=== PATIENT | male | born 1960 | race Caucasian/White ===

== ENCOUNTER 2018-07-06 06:48 | Day surgery (SDC) | payer BC ==
[2018-06-30 14:28] VITALS: BMI 35.9
[~2018-07-06 06:48] MED LIST: LACTATED RINGERS 1,000 ML IV SCH; LIDOCAINE 1% 20 ML VIAL (10MG/ML) FOR IV START INTRADERMA PRN
[2018-07-06 07:09] VITALS: RESP 16; TEMP 98.1
[2018-07-06 07:23] LABS: Glucose,Whole Blood 192 mg/dL (75-99)
[2018-07-06] MEDS ORDERED: PROPOFOL 10 MG/ML 20 ML VIAL IV ONE (07:47)
[2018-07-06] MEDS ORDERED: GLUCAGON 1 MG/ML VIAL ONE (07:47)
--- NOTE | 2018-07-06 07:52 | P.GSHP ---
History of Present Illness H&P Date: 07/06/18 Chief Complaint: History of colon polyps This is a 57-year-old male who presents today for colonoscopy. Patient history of colon polyps. Past Medical History Past Medical History: Diabetes Mellitus Additional Past Medical History / Comment(s): hx colon polyps History of Any Multi-Drug Resistant Organisms: None Reported Past Surgical History: No Surgical Hx Reported Additional Past Surgical History / Comment(s): colonoscopy Past Anesthesia/Blood Transfusion Reactions: No Reported Reaction Past Psychological History: No Psychological Hx Reported Smoking Status: Former smoker Past Alcohol Use History: Occasional Additional Past Alcohol Use History / Comment(s): quit smoking 20 yrs ago, smoked 1 pack per month Past Drug Use History: None Reported - Past Family History Father Family Medical History: Cancer, Deep Vein Thrombosis (DVT) Mother Family Medical History: Cancer Medications and Allergies Home Medications Medication Instructions Recorded Confirmed Type metFORMIN HCL [Glucophage] 500 mg PO BID 03/29/16 07/06/18 History Allergies Allergy/AdvReac Type Severity Reaction Status Date / Time No Known Allergies Allergy Verified 07/06/18 07:05 Surgical - Exam Vital Signs Temp Pulse Resp BP Pulse Ox 98.1 F 58 L 16 152/85 97 07/06/18 07:03 07/06/18 07:03 07/06/18 07:03 07/06/18 07:03 07/06/18 07:03 - General well developed, no distress - Eyes PERRL - ENT normal pinna - Neck no masses - Respiratory normal expansion - Cardiovascular Rhythm: regular - Abdomen Abdomen: soft, non tender Results - Labs Abnormal Lab Results - Last 24 Hours (Table) 07/06/18 Range/Units 07:11 POC Glucose (mg/dL) 192 H (75-99) mg/dL Assessment and Plan Assessment: History of colon polyps. We'll perform colonoscopy.
--- NOTE | 2018-07-06 08:16 | P.OP ---
Date of Procedure: 07/06/18 Preoperative Diagnosis: History of colon polyps Postoperative Diagnosis: Rectal polyp Right colon polyp Procedure(s) Performed: Colonoscopy Anesthesia: MAC Surgeon: Best Campbell Pathology: other (Colon polyps) Condition: stable Disposition: PACU Description of Procedure: Patient's placed on the endoscopy table in the lateral position. He received IV sedation. Digital rectal exam was performed which revealed no abnormalities. The prostate was symmetric without nodules. The flexible colonoscope was then placed patient anus and passed throughout the entire colon. Ileocecal valve was visualized. The cecum, appeared normal. In the ascending colon there was another polyp seen this is removed the cold forcep. The remainder of the transverse colon and descending colon appeared normal. Sigmoid colon had a few scattered diverticula. Scope was then brought back the rectum and another polyp seen this removed with the snare. Scope was withdrawn for patient.
[2018-07-06 08:32] LABS: Glucose,Whole Blood 232 mg/dL (75-99)
[2018-07-06 08:52] VITALS: BP 132/88; PULSE 67
== END 2018-07-06 09:14 | disposition home or self-care (01) ==
LOC: ORWHC2ENDO 06:48
PROVIDERS: ATTEND Surgery
DX: Z12.11 Encounter for screening for malignant neoplasm of colon (principal); D12.8 Benign neoplasm of rectum; K63.5 Polyp of colon; K57.30 Diverticulosis of large intestine without perforation or abscess without bleeding; Z86.010 Personal history of colon polyps; E11.9 Type 2 diabetes mellitus without complications; Z87.891 Personal history of nicotine dependence; Z79.84 Long term (current) use of oral hypoglycemic drugs
CPT/HCPCS: 88305; 45380; 45385; J1610; J2704

== ENCOUNTER 2021-03-29 23:39 | Emergency (ER) | payer BC, OTHER ==
[2021-03-30] MEDS ORDERED: BAMLANIVIMAB (EUA) 700 MG, ETESEVIMAB (EUA) 1,400 MG in SODIUM CHLORIDE 0.9% 50 ML IVPB ONE (00:15)
[2021-03-30] MEDS ORDERED: SODIUM CHLORIDE 0.9% 50 ML IVPB ONE (00:15)
--- NOTE | 2021-03-30 00:47 | XR ---
EXAMINATION TYPE: XR chest 2V DATE OF EXAM: 03/30/2021 COMPARISON: NONE HISTORY: Chest pain TECHNIQUE: 2 views FINDINGS: There is some patchy predominantly interstitial infiltrates in both lungs. Heart and medias tinum are normal. There are no hilar masses. There is no pleural effusion. Bony thorax is intact. IMPRESSION: Patchy bilateral mild interstitial pneumonia. Normal heart.
[2021-03-30 02:08] VITALS: BP 154/87; PULSE 78; RESP 18; TEMP 98.5
--- NOTE | 2021-04-30 16:36 | ED ---
SOB HPI - General Chief Complaint: Shortness of Breath Stated Complaint: covid+, SOB Time Seen by Provider: 03/29/21 23:55 Source: patient, RN notes reviewed Mode of arrival: ambulatory Limitations: no limitations - History of Present Illness Initial Comments: 60-year-old male complaining of shortness of breath since middle of March. He came to the emergency room due to a low oxygen saturation at home on a home pulse ox. He noted that he was not having any symptoms or issues. He notes he came in due to the low readings on his at home pulse ox. He denied chest pain shortness of breath headache nausea vomiting diarrhea constipation fever fatigue chills. - Related Data Home Medications Medication Instructions Recorded Confirmed metFORMIN HCL [Glucophage] 500 mg PO BID 03/29/16 07/06/18 Allergies Allergy/AdvReac Type Severity Reaction Status Date / Time No Known Allergies Allergy Verified 03/29/21 23:43 Review of Systems ROS Statement: Those systems with pertinent positive or pertinent negative responses have been documented in the HPI. ROS Other: All systems not noted in ROS Statement are negative. Past Medical History Past Medical History: Diabetes Mellitus Additional Past Medical History / Comment(s): hx colon polyps History of Any Multi-Drug Resistant Organisms: None Reported Past Surgical History: No Surgical Hx Reported Additional Past Surgical History / Comment(s): colonoscopy Past Anesthesia/Blood Transfusion Reactions: No Reported Reaction Past Psychological History: No Psychological Hx Reported Smoking Status: Never smoker Past Alcohol Use History: Occasional Past Drug Use History: None Reported - Past Family History Father Family Medical History: Cancer, Deep Vein Thrombosis (DVT) Mother Family Medical History: Cancer General Exam Limitations: no limitations General appearance: alert, in no apparent distress, obese Head exam: Present: atraumatic, normocephalic, normal inspection Eye exam: Present: normal appearance, PERRL, EOMI. Absent: scleral icterus, conjunctival injection, periorbital swelling ENT exam: Present: normal exam, mucous membranes moist Neck exam: Present: normal inspection. Absent: tenderness, meningismus, lymphadenopathy Respiratory exam: Present: normal lung sounds bilaterally. Absent: respiratory distress, wheezes, rales, rhonchi, stridor Cardiovascular Exam: Present: regular rate, normal rhythm, normal heart sounds. Absent: systolic murmur, diastolic murmur, rubs, gallop, clicks GI/Abdominal exam: Present: soft, normal bowel sounds. Absent: distended, tenderness, guarding, rebound, rigid Extremities exam: Present: normal inspection, full ROM, normal capillary refill. Absent: tenderness, pedal edema, joint swelling, calf tenderness Neurological exam: Present: alert, oriented X3 Psychiatric exam: Present: normal affect, normal mood Skin exam: Present: warm, dry, intact, normal color. Absent: rash Course Vital Signs 03/29/21 03/30/21 03/30/21 23:43 00:32 01:48 Temperature 97.8 F 98.5 F Pulse Rate 76 78 Respiratory 16 18 18 Rate Blood Pressure 148/85 154/87 O2 Sat by Pulse 97 97 96 Oximetry Medical Decision Making - Medical Decision Making 60-year-old male that presents emergency department complaining of shortness of breath and low oxygen at home. Vital signs are stable within normal limits. Patient does meet criteria for monoclonal antibodies. Patient is reluctant discharge home after. Case discussed with Dr. Stein. - Radiology Data Radiology results: report reviewed, image reviewed Chest x-ray: Patchy bilateral mild interstitial pneumonia. Normal heart. Disposition Clinical Impression: COVID Disposition: HOME SELF-CARE Condition: Stable Additional Instructions: Please return to the Emergency Department if symptoms worsen or any other concerns. Is patient prescribed a controlled substance at d/c from ED?: No Referrals: Raji Lima DO [Primary Care Provider] - 1-2 days Time of Disposition: 01:25
== END 2021-03-30 01:50 | disposition home or self-care (01) ==
LOC: EC 23:39
DX: U07.1 COVID-19 (principal); E11.9 Type 2 diabetes mellitus without complications
CPT/HCPCS: 71046; 99284; J3490

== ENCOUNTER 2022-05-27 06:52 | Day surgery (SDC) | payer OTHER ==
[2022-05-24 15:30] VITALS: BMI 33.7
[~2022-05-27 06:52] MED LIST changes: +LIDOCAINE 1% (10MG/ML) FOR IV START INTRADERMA PRN; -LIDOCAINE 1% 20 ML VIAL (10MG/ML) FOR IV START INTRADERMA PRN
[2022-05-27 07:11] VITALS: TEMP 96.5
[2022-05-27 07:27] LABS: Glucose,Whole Blood 159 mg/dL (70-110)
[2022-05-27] MEDS ORDERED: IV FLUID CONTINUATION 1,000 ML IV ONE ×2 (07:39)
[2022-05-27] MEDS ORDERED: PROPOFOL 10 MG/ML 20 ML VIAL IV ONE (07:39)
--- NOTE | 2022-05-27 07:50 | P.GSHP ---
History of Present Illness H&P Date: 05/27/22 Chief Complaint: History of colon polyps This a 7-year-old male with previous history of old polyps. Patient resents today for colonoscopy. Past Medical History Past Medical History: Diabetes Mellitus Additional Past Medical History / Comment(s): hx colon polyps,was treated with monoclonal antibodies 2020 for SOB History of Any Multi-Drug Resistant Organisms: None Reported Past Surgical History: Appendectomy Additional Past Surgical History / Comment(s): colonoscopy Past Anesthesia/Blood Transfusion Reactions: No Reported Reaction Additional Past Anesthesia/Blood Transfusion Reaction / Comment(s): no hx blood transfusion Smoking Status: Former smoker - Past Family History Father Family Medical History: Cancer Additional Family Medical History / Comment(s): lung Mother Family Medical History: Cancer Additional Family Medical History / Comment(s): sleep apnea Medications and Allergies Home Medications Medication Instructions Recorded Confirmed Type Empagliflozin [Jardiance] 10 mg PO HS 05/24/22 05/24/22 History Rosuvastatin Calcium 5 mg PO HS 05/24/22 05/24/22 History metFORMIN HCL ER [Glucophage XR] 500 mg PO HS 05/24/22 05/24/22 History Allergies Allergy/AdvReac Type Severity Reaction Status Date / Time No Known Allergies Allergy Verified 05/27/22 07:08 Surgical - Exam Vital Signs Temp Pulse Resp BP Pulse Ox 96.5 F L 74 16 149/86 97 05/27/22 07:10 05/27/22 07:10 05/27/22 07:10 05/27/22 07:10 05/27/22 07:10 - General well developed, well nourished, no distress - Eyes PERRL - ENT normal pinna - Neck no masses - Respiratory normal expansion - Cardiovascular Rhythm: regular - Abdomen Abdomen: soft, non tender Results - Labs Abnormal Lab Results - Last 24 Hours (Table) 05/27/22 Range/Units 07:20 POC Glucose (mg/dL) 159 H (70-110) mg/dL Assessment and Plan Assessment: History of colon polyps. We'll perform colonoscopy.
--- NOTE | 2022-05-27 08:04 | P.OP ---
Date of Procedure: 05/27/22 Preoperative Diagnosis: History of colon polyps Postoperative Diagnosis: Sigmoid colon polyp Procedure(s) Performed: Colonoscopy Anesthesia: MAC Surgeon: Best Campbell Pathology: other (Sigmoid colon polyp) Condition: stable Disposition: PACU Description of Procedure: The patient's placed on the endoscopy table in the lateral position. He received IV sedation. Digital rectal exam was performed. This revealed no abnormality. The flexible colonoscope was then placed patient anus and passed throughout the entire colon. The ileocecal valve was visualized. Cecum, ascending and transverse colon appeared normal. In the descending colon there is some mild diverticular changes. Scope was then brought back and sigmoid colon and there a few scattered diverticula. There was also a small sessile polyp. This removed with the cold forcep. Scope brought back the rectum and this appeared normal. Scope withdrawn for patient.
[2022-05-27 08:38] VITALS: BP 117/75; PULSE 75; RESP 16
== END 2022-05-27 08:45 | disposition home or self-care (01) ==
LOC: ORWHC2ENDO 06:52
PROVIDERS: ATTEND Surgery
DX: Z12.11 Encounter for screening for malignant neoplasm of colon (principal); K63.5 Polyp of colon; K57.30 Diverticulosis of large intestine without perforation or abscess without bleeding; E78.5 Hyperlipidemia, unspecified; E11.9 Type 2 diabetes mellitus without complications; Z90.49 Acquired absence of other specified parts of digestive tract; Z87.891 Personal history of nicotine dependence; Z80.1 Family history of malignant neoplasm of trachea, bronchus and lung; Z80.2 Family history of malignant neoplasm of other respiratory and intrathoracic organs; Z79.02 Long term (current) use of antithrombotics/antiplatelets; Z79.84 Long term (current) use of oral hypoglycemic drugs; Z79.899 Other long term (current) drug therapy
CPT/HCPCS: 88305; 45380; J2704